=== PATIENT | male | born 1960 | race Caucasian/White ===

== ENCOUNTER 2018-10-15 11:55 | Emergency (ER) | payer MEDICARE, BC ==
--- NOTE | 2018-10-15 12:07 | ERPHSYRPT ---
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 skin tear R forearm (dorsum) Timing/Duration: today Quality: burning Severity: mild Location: extremities (Right forearm) Possible Causes: other (working under car/transmission - slipped and scraped/ abraded flap of skin R forearm) Allergies/Adverse Reactions: adhesive tape Adverse Reaction (Verified 10/15/18 12:19) Home Medications: Folic Acid/B Cplx/C/Selen/Zinc [Dialyvite 3,000 Tablet] 1 each PO DAILY [History] Hydralazine HCl 100 mg PO BID 10/15/18 [History] Losartan Potassium [Cozaar] 100 mg PO DAILY 10/15/18 [History] dilTIAZem HCl [Diltiazem 24Hr ER (Cd)] 360 mg PO DAILY 10/15/18 [History] - Review of Systems Constitutional: No Symptoms Respiratory: No Symptoms Cardiac: No Symptoms Musculoskeletal: No Symptoms (Denies muscle pain R forearm, upper arm, hand, shoulder) Neurological: No Symptoms All Other Systems: Reviewed and Negative - Nursing Vital Signs Nursing Vital Signs: Initial Vital Signs Temperature 99.1 F 10/15/18 12:04 Pulse Rate 90 10/15/18 12:04 Respiratory Rate 20 10/15/18 12:04 Blood Pressure 147/97 10/15/18 12:04 O2 Sat by Pulse Oximetry 95 10/15/18 12:04 Pain Scale Pain Intensity 0 - Physical Exam General Appearance: mild distress Eye Exam: PERRL/EOMI Respiratory Exam: normal breath sounds Cardiovascular Exam: regular rate/rhythm Neurologic Exam: alert, oriented x 3, cooperative Skin Exam: normal color, warm, dry, other (Skin tear right forearm dorsal aspect ) - Course Nursing assessment & vital signs reviewed: Yes - Progress Progress: improved (Clensed and dressed by RN) Progress Note: 10/15/18 16:[address] as physiologic dressing; patien is up to date Tetanus (3 years) - Departure Departure Disposition: Home Clinical Impression: Skin tear of forearm without complication Qualifiers: Encounter type: initial encounter Laterality: right Qualified Code(s): S51.811A - Laceration without foreign body of right forearm, initial encounter Condition: Stable Critical Care Time: No Referrals: PATO NEAL MD [Primary Care Provider] - Instructions: Wound Care (DC) Additional Instructions: Watch for signs of infection; follow up with primary care.
[2018-10-15 12:19] VITALS: BP 147/97; PULSE 90; O2SAT 95
== END 2018-10-15 13:07 | disposition home or self-care (01) ==
LOC: ED 11:55
DX: S51.811A Laceration without foreign body of right forearm, initial encounter (principal); W22.8XXA Striking against or struck by other objects, initial encounter; Y93.89 Activity, other specified
CPT/HCPCS: 99283